=== PATIENT | female | born 1980 | race Caucasian/White ===

== ENCOUNTER 2018-08-23 10:38 | Emergency (ER) | payer OTHER ==
[~2018-08-23] VITALS: Ht 165.1 cm; Wt 70.3 kg
[~2018-08-23 10:38] MED LIST: ACETAMINOPHEN-1 EAC1 PO; ACID CONTROLLER10 MG PO; ALEVE220 MG PO; AMITRIPTYLINE; AMITRIPTYLINE H25 M2 PO; BUTRANS1 EAC1 TD; CARAFATE 11 GM/10 M1 PO; CELEBREX 200 M200 M1 PO; CIPRO500 MG PO; CIPROFLOXACIN500 M3 PO; CLEOCIN HCL150 MG PO; CLONAZEPAM 1 MG1 M1 PO; COMPAZINE10 MG PO; CYMBALTA30 MG; CYMBALTA30 MG PO; ELMIRON 100 MG100 M1 PO; ESTROGEN; EXCEDRIN CAPLE1 EACH PO; FLEXERIL PO; HYDROCODONE-AP1 EAC6 PO; HYSINGLA ER20 MG PO; IBUPROFEN 800800 M1 PO; INVANZ1 GM IVPB; LEVAQUIN 250 M250 MG PO; LEVAQUIN 500 M500 MG PO; LYRICA 50 MG50 MG PO; MEDROL DOSPAK21 TAB PO; NEURONTIN 300300 M1; NEXIUM; NEXIUM40 MG; NORCO 5-325 TA1 EACH PO; NORFLEX100 MG PO; OMEPRAZOLE; PERCOCET 5-3251 EACH PO; PHENAZOPYRIDIN200 M2 PO; PHENERGAN 25 MG25 M1 PO; PROTONIX 20 MG20 M1 PO; PROTONIX40 M1 PO; PROZAC 20 MG20 M1; PYRIDIUM200 MG PO; TORADOL 10 MG T10 MG PO; TRAMADOL 50 MG50 MG PO; TYLENOL325 MG PO; ULTRAM 50MG TAB50 MG PO; VALTREX; VICODIN 5-5001 EACH PO; XANAX 0.25 MG0.25 MG; ZOFRAN4 MG PO; ZYRTEC10 MG PO; [UNRECOGNIZED DRUG - OTHER] PO; [UNRECOGNIZED DRUG - OTHER] PO
[2018-08-23] MEDS ORDERED: NEURONTIN 300300 M1 PO (10:49)
[2018-08-23] MEDS ORDERED: DEPAKOTE ER250 MG PO (10:49)
[2018-08-23] MEDS ORDERED: ELMIRON 100 MG100 M1 PO (10:50)
[2018-08-23 11:12] LABS: HEMOGLOBIN 15.9 gm/dL (12.0-15.0); MCH 31.9 pg (26.0-34.0); MCHC 34.5 g/dL (28.0-37.0); MCV 92.5 fL (80.0-100.0); MPV 9.2 fl. (7.2-11.1); NUCLEATED RBCS 0 /100WBC; PLATELET COUNT* 357 thou/uL (150-400); RBC 4.97 mil/uL (4.20-5.00); RDW-CV 12.9 % (10.5-14.5); WBC 12.9 thou/uL (4.0-11.0)
[2018-08-23 11:31] LABS: ALBUMIN 4.1 g/dL (3.4-5.0); ALKALINE PHOSPHATASE 69 U/L (46-116); ANION GAP 17 mmol/L (7-16); BUN 25 mg/dL (7-18); CALCIUM 9.3 mg/dL (8.5-10.1); CHLORIDE 93 mmol/L (98-107); CO2 23 mmol/L (21-32); GLUCOSE 124 mg/dL (70-99); LIPASE 52 U/L (73-393); POTASSIUM 3.5 mmol/L (3.5-5.1); SGOT 18 U/L (15-37); SGPT 49 U/L (30-65); SODIUM 133 mmol/L (136-145); TOTAL BILIRUBIN 0.6 mg/dL (<0.1-1.0); TROPONIN-I LEVEL <0.06 ng/mL (<0.06)
[2018-08-23 11:46] LABS: ABSOLUTE LYMPHOCYTES 1.4 thou/uL (0.8-5.3); ABSOLUTE NEUTROPHILS 10.4 thou/uL (1.6-8.1)
[2018-08-23 11:47] LABS: PLATELET ESTIMATE ADEQUATE
[2018-08-23 11:58] LABS: URINE BILIRUBIN NEGATIVE (Negative); URINE BLOOD TRACE (Negative); URINE CLARITY CLEAR; URINE COLOR YELLOW; URINE GLUCOSE-RANDOM NEGATIVE (Negative); URINE KETONES NEGATIVE (Negative); URINE LEUKOCYTES-REFLEX NEGATIVE (Negative); URINE NITRITE-REFLEX NEGATIVE (Negative); URINE PROTEIN 2+ (Negative); URINE SPECIFIC GRAVITY >= 1.030 (1.005-1.030); URINE UROBILINOGEN 0.2 E.U./dl (0.2-1.0)
[2018-08-23 12:07] LABS: BACTERIA-REFLEX >30 Many /HPF (None Seen); CASTS None Seen /LPF (None Seen); CRYSTALS None Seen /LPF (None Seen); MUCUS 4-6 Moderate strn/LPF (None Seen); SQUAMOUS >10 Many /LPF (0-3); URINE RBC 0-2 Rare /HPF (0-2); URINE WBC-REFLEX 0-5 Rare /HPF (0-5)
[2018-08-23] MEDS ORDERED: ONDANSETRON HCL4 M2 PO (12:33)
[2018-08-23] MEDS ORDERED: FLAGYL500 M1 PO ×2 (12:33→12:44)
[2018-08-23] MEDS ORDERED: BENTYL 20 MG TA20 M1 PO (12:34)
[2018-08-23] MEDS ORDERED: BACTRIM DS TAB1 EACH PO (12:40)
[2018-08-23] MEDS ORDERED: PHENERGAN 25 MG25 M1 PO (12:43)
[2018-08-23 14:33] VITALS: BP 131/86
--- NOTE | 2018-08-23 15:59 | EKG ---
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 ANTON : 1980 Requested By: Brittany Jean Baptiste Order Number: [id number] MD: Casper Samson Measurements Intervals [place] Rate: 94 P: 60 VT: 133 QRS: 30 QRSD: 81 T: -66 QT: 435 QTc: 545 Interpretive Statements Sinus rhythm Nonspecific T abnormalities, diffuse leads Prolonged QT interval Compared to ECG 09/30/2013 19:51:20 Prolonged QT interval now present T-wave abnormality still present Electronically Signed On 08-23-2018 15:59:05 CDT by Casper Samson [email or web address] <ELECTRONICALLY SIGNED> By: Casper Samson MD, FACC 08/23/18 1559 1226 1226 Casper Samson MD, [facility] /EPI
== END 2018-08-23 14:34 | disposition home or self-care (01) ==
LOC: M.ERS 10:38
PROVIDERS: Nurse Practitioner Family
DX: K52.9 Noninfective gastroenteritis and colitis, unspecified (principal); I88.0 Nonspecific mesenteric lymphadenitis; N39.0 Urinary tract infection, site not specified; M79.7 Fibromyalgia; F41.9 Anxiety disorder, unspecified; Z90.49 Acquired absence of other specified parts of digestive tract; Z90.710 Acquired absence of both cervix and uterus; F17.210 Nicotine dependence, cigarettes, uncomplicated; Z88.0 Allergy status to penicillin; Z88.1 Allergy status to other antibiotic agents; Z88.8 Allergy status to other drugs, medicaments and biological substances

== ENCOUNTER 2018-11-22 21:46 | Emergency (ER) | payer OTHER ==
[~2018-11-22] VITALS: Ht 154.9 cm; Wt 70.3 kg
[~2018-11-22 21:46] MED LIST changes: +BACTRIM DS TAB1 EACH PO; +BENTYL 20 MG TA20 M1 PO; +DEPAKOTE ER250 MG PO; +FLAGYL500 M1 PO; +NEURONTIN 300300 M1 PO; +ONDANSETRON HCL4 M2 PO
[2018-11-22 23:20] VITALS: BP 124/65
== END 2018-11-22 23:21 | disposition home or self-care (01) ==
LOC: M.ERS 21:46
DX: G43.909 Migraine, unspecified, not intractable, without status migrainosus (principal); M79.7 Fibromyalgia; F41.9 Anxiety disorder, unspecified; F17.210 Nicotine dependence, cigarettes, uncomplicated; F10.10 Alcohol abuse, uncomplicated; F12.10 Cannabis abuse, uncomplicated; Z79.899 Other long term (current) drug therapy; Z90.49 Acquired absence of other specified parts of digestive tract; Z88.1 Allergy status to other antibiotic agents; Z88.0 Allergy status to penicillin; Z90.710 Acquired absence of both cervix and uterus; Z87.442 Personal history of urinary calculi; Z88.8 Allergy status to other drugs, medicaments and biological substances

== ENCOUNTER 2019-06-09 09:38 | Emergency (ER) | payer OTHER ==
[~2019-06-09] VITALS: Ht 152.4 cm; Wt 72.6 kg
[2019-06-09] MEDS ORDERED: TOPAMAX25 M1 PO (10:03)
[2019-06-09] MEDS ORDERED: CYMBALTA60 MG PO (10:04)
[2019-06-09] MEDS ORDERED: TESSALON PERLE100 MG PO ×2 (10:05→11:06)
[2019-06-09] MEDS ORDERED: ZPAK PO (11:06)
[2019-06-09] MEDS ORDERED: PROMETHAZI6.25 MG/5 PO (11:06)
[2019-06-09] MEDS ORDERED: ONDANSETRON ODT4 MG PO (11:06)
[2019-06-09 11:08] LABS: INFLUENZA A ANTIGEN Negative (Negative); INFLUENZA B ANTIGEN Negative (Negative)
[2019-06-09 11:38] VITALS: BP 133/80
--- NOTE | 2019-06-12 13:56 | EKG ---
[place] [address] ELECTROCARDIOGRAM REPORT Name: ANIYAH GONZALES Room: 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1980 Requested By: Arsh Kramer Order Number: [id number] MD: Gael Xie Measurements Intervals [place] Rate: 96 P: 52 FL: 132 QRS: 38 QRSD: 86 T: 119 QT: 317 QTc: 401 Interpretive Statements Sinus rhythm Nonspecific T abnrm, anterolateral leads Compared to ECG 08/23/2018 12:26:49 T-wave abnormality no longer present Prolonged QT interval no longer present Electronically Signed On 06-10-2019 15:59:36 TOUCHER UP by Gael Xie [email or web address] <ELECTRONICALLY SIGNED> By: Gael Xie MD, [facility] 06/10/19 1559 1003 1003 Gael Xie MD, [facility] /EPI
== END 2019-06-09 11:39 | disposition home or self-care (01) ==
LOC: M.ERS 09:38
PROVIDERS: Physician Assistant
DX: J18.9 Pneumonia, unspecified organism (principal); F41.9 Anxiety disorder, unspecified; M79.7 Fibromyalgia; F17.210 Nicotine dependence, cigarettes, uncomplicated; Z90.710 Acquired absence of both cervix and uterus; Z90.49 Acquired absence of other specified parts of digestive tract; Z87.442 Personal history of urinary calculi; Z88.1 Allergy status to other antibiotic agents; Z88.0 Allergy status to penicillin

== ENCOUNTER 2019-10-05 23:05 | Emergency (ER) | payer OTHER ==
[~2019-10-05] VITALS: Ht 152.4 cm; Wt 72.6 kg
[~2019-10-05 23:05] MED LIST changes: +CYMBALTA60 MG PO; +ONDANSETRON ODT4 MG PO; +PROMETHAZI6.25 MG/5 PO; +TESSALON PERLE100 MG PO; +TOPAMAX25 M1 PO; +ZPAK PO
[2019-10-05 23:25] LABS: URINE BILIRUBIN NEGATIVE (Negative); URINE BLOOD 3+ (Negative); URINE CLARITY CLEAR; URINE COLOR YELLOW; URINE GLUCOSE-RANDOM NEGATIVE (Negative); URINE KETONES NEGATIVE (Negative); URINE LEUKOCYTES-REFLEX NEGATIVE (Negative); URINE NITRITE-REFLEX NEGATIVE (Negative); URINE PROTEIN NEGATIVE (Negative); URINE UROBILINOGEN 0.2 E.U./dl (0.2-1.0)
[2019-10-05] MEDS ORDERED: CLONAZEPAM 0.50.5 M1 PO (23:27)
[2019-10-05 23:31] LABS: BACTERIA-REFLEX >30 Many /HPF (None Seen); CASTS None Seen /LPF (None Seen); CRYSTALS None Seen /LPF (None Seen); SQUAMOUS 0-3 Few /LPF (0-3); URINE WBC-REFLEX 0-5 Rare /HPF (0-5)
[2019-10-05 23:33] LABS: ABSOLUTE BASOPHILS 0.2 thou/uL (0.0-0.2); ABSOLUTE EOSINOPHILS 0.3 thou/uL (0.0-0.7); ABSOLUTE LYMPHOCYTES 4.2 thou/uL (0.8-5.3); ABSOLUTE MONOCYTES 0.8 thou/uL (0.0-1.2); BASOPHILS 1.3 %; EOSINOPHILS 2.6 %; HEMATOCRIT 37.4 % (37.0-47.0); LYMPHOCYTES 33.6 %; MCHC 34.8 g/dL (28.0-37.0); MONOCYTES 6.2 %; MPV 8.8 fl. (7.2-11.1); NUCLEATED RBCS 0 /100WBC; PLATELET COUNT* 376 thou/uL (150-400); POLYS 56.3 %; RBC 4.07 mil/uL (4.20-5.00); RDW-CV 12.9 % (10.5-14.5); WBC 12.4 thou/uL (4.0-11.0)
[2019-10-05 23:42] LABS: CALCIUM 8.5 mg/dL (8.5-10.1); CREATININE 0.8 mg/dL (0.6-1.3); POTASSIUM 3.3 mmol/L (3.5-5.1)
[2019-10-05 23:46] LABS: ALBUMIN 3.8 g/dL (3.4-5.0); TOTAL BILIRUBIN 0.3 mg/dL (<0.1-1.0); TOTAL PROTEIN 7.6 g/dL (6.4-8.2)
[2019-10-06] MEDS ORDERED: NORCO 5-325 TA1 EAC1 PO (01:15)
[2019-10-06] MEDS ORDERED: ZOFRAN ODT4 MG DISSOLVE (01:15)
[2019-10-06] MEDS ORDERED: BACTRIM DS TAB1 EAC1 PO (01:15)
[2019-10-06 01:35] VITALS: BP 122/69
== END 2019-10-06 01:37 | disposition home or self-care (01) ==
LOC: M.ERS 23:05
PROVIDERS: Emergency Medicine Emergency Medical Services
DX: N39.0 Urinary tract infection, site not specified (principal); R31.9 Hematuria, unspecified; M79.7 Fibromyalgia; F41.9 Anxiety disorder, unspecified; F17.210 Nicotine dependence, cigarettes, uncomplicated; Z88.1 Allergy status to other antibiotic agents; Z88.0 Allergy status to penicillin; Z90.710 Acquired absence of both cervix and uterus

== ENCOUNTER 2019-10-18 00:11 | Emergency (ER) | payer OTHER ==
[~2019-10-18] VITALS: Ht 152.4 cm; Wt 72.6 kg
[~2019-10-18 00:11] MED LIST changes: +BACTRIM DS TAB1 EAC1 PO; +CLONAZEPAM 0.50.5 M1 PO; +NORCO 5-325 TA1 EAC1 PO; +ZOFRAN ODT4 MG DISSOLVE
[2019-10-18 00:42] LABS: URINE BILIRUBIN NEGATIVE (Negative); URINE BLOOD 1+ (Negative); URINE CLARITY CLEAR; URINE COLOR YELLOW; URINE GLUCOSE-RANDOM NEGATIVE (Negative); URINE KETONES NEGATIVE (Negative); URINE LEUKOCYTES-REFLEX NEGATIVE (Negative); URINE NITRITE-REFLEX NEGATIVE (Negative); URINE PROTEIN TRACE (Negative); URINE SPECIFIC GRAVITY >= 1.030 (1.005-1.030); URINE UROBILINOGEN 0.2 E.U./dl (0.2-1.0)
[2019-10-18 00:53] LABS: ABSOLUTE BASOPHILS 0.2 thou/uL (0.0-0.2); ABSOLUTE EOSINOPHILS 0.4 thou/uL (0.0-0.7); ABSOLUTE LYMPHOCYTES 3.8 thou/uL (0.8-5.3); ABSOLUTE MONOCYTES 1.5 thou/uL (0.0-1.2); ABSOLUTE NEUTROPHILS 11.6 thou/uL (1.6-8.1); BASOPHILS 1.1 %; EOSINOPHILS 2.5 %; HEMATOCRIT 37.8 % (37.0-47.0); HEMOGLOBIN 12.7 gm/dL (12.0-15.0); LYMPHOCYTES 21.8 %; MCH 30.8 pg (26.0-34.0); MCHC 33.6 g/dL (28.0-37.0); MCV 91.5 fL (80.0-100.0); MONOCYTES 8.3 %; MPV 9.2 fl. (7.2-11.1); NUCLEATED RBCS 0 /100WBC; PLATELET COUNT* 347 thou/uL (150-400); POLYS 66.3 %; RBC 4.14 mil/uL (4.20-5.00); RDW-CV 12.8 % (10.5-14.5); WBC 17.5 thou/uL (4.0-11.0)
[2019-10-18 01:03] LABS: ALBUMIN 3.6 g/dL (3.4-5.0); CALCIUM 8.5 mg/dL (8.5-10.1); CREATININE 1.3 mg/dL (0.6-1.3); POTASSIUM 3.5 mmol/L (3.5-5.1); TOTAL BILIRUBIN 0.2 mg/dL (<0.1-1.0); TOTAL PROTEIN 7.1 g/dL (6.4-8.2)
[2019-10-18 01:03] LABS: CASTS None Seen /LPF (None Seen); CRYSTALS None Seen /LPF (None Seen); SQUAMOUS 0-3 Few /LPF (0-3); URINE RBC 0-2 Rare /HPF (0-2); URINE WBC-REFLEX 6-15 Few /HPF (0-5)
[2019-10-18] MEDS ORDERED: TORADOL 10 MG T10 MG PO (03:35)
[2019-10-18] MEDS ORDERED: OXYCODONE HCL 55 MG PO (03:35)
[2019-10-18] MEDS ORDERED: FLOMAX0.4 MG PO (03:35)
[2019-10-18 03:52] VITALS: BP 142/87
== END 2019-10-18 03:53 | disposition home or self-care (01) ==
LOC: M.ERS 00:11
PROVIDERS: Personal Emergency Response Attendant
DX: N30.10 Interstitial cystitis (chronic) without hematuria (principal); M79.7 Fibromyalgia; F41.9 Anxiety disorder, unspecified; F17.210 Nicotine dependence, cigarettes, uncomplicated; Z90.710 Acquired absence of both cervix and uterus; Z87.442 Personal history of urinary calculi; Z90.49 Acquired absence of other specified parts of digestive tract; Z88.0 Allergy status to penicillin; Z88.1 Allergy status to other antibiotic agents; Z88.8 Allergy status to other drugs, medicaments and biological substances